=== PATIENT | female | born 1980 ===

== ENCOUNTER 2021-02-03 00:57 | Emergency (ER) | payer SELFPAY ==
--- OUTSIDE RECORDS SUMMARY | 2021-02-03 01:00 | XMS REPORT | Continuity of Care Document ---
:1980 Author Organization [facility] t Address [address] [place] [address] Care Team Providers Name Role Phone Visit, Evaristo Nurse Attending Clinician Unavailable Josiah Ramirez Attending Clinician Problems This patient has no known problems. Allergies, Adverse Reactions, Alerts This patient has no known allergies or adverse reactions. Medications This patient has no known medications. Procedures This patient has no known procedures. Encounters Start End Encounter Admission Attending Care Care Encounter Source Date/Time Date/Time Type Type Clinicians Facility Department ID 2021-01-24 2021-01-24 Nurse Visit, [facility] [id number] 14:55:14 15:19:57 Visit Evaristo ASSISTANT CURATOR [id number] Nurse [facility] [id number] MATERNAL [id number] & CHILD 107 [facility] 2020-10-03 2020-10-03 Nurse Visit, [facility] [id number] 08:21:22 08:31:[facility] [id number] [facility] [id number] MATERNAL [id number] & CHILD 107 [facility] 2020-08-15 2020-08-15 [facility] [id number] 06:25:52 23:59:00 Encounter Farzana Rahman SPECIALTY [id number] CARE [id number] CENTER AT [id number] [address] 2020-07-03 2020-07-03 Office [facility] [id number] 09:49:29 10:47:14 Visit Farzana Rahman ASSISTANT CURATOR [id number] [facility] [id number] MATERNAL [id number] & CHILD [address] [place] [address] - [place] Results This patient has no known results.
[2021-02-03 02:12] LABS: Urine Blood TRACE (NEG); Urine Glucose NEGATIVE (NEG); Urine Protein NEGATIVE (NEG); Urine Specific Gravity >1.030 (1.005-1.030); Urine pH 6.5 (5.0-7.0)
[2021-02-03] MEDS ORDERED: KETOROLAC 30 MG/ML INJ ONE (02:27)
[2021-02-03] MEDS ORDERED: ACETAMINOPHEN 500 MG TAB ONE (02:27)
[2021-02-03] MEDS ORDERED: ONDANSETRON 4 MG/2 ML VIAL ONE (04:00)
[2021-02-03] MEDS ORDERED: NA CHLORIDE 0.9% 1,000 ML ONE (04:00)
[2021-02-03] MEDS ORDERED: MORPHINE 4 MG/ML SYR ONE (04:00)
[2021-02-03 04:14] LABS: Absolute Lymphocytes (CBC) 1.7 K/uL (0.7-4.9); Basophils % 0.6 % (0-1.3); Lymphocytes % 20.4 % (15.3-44.8); MPV 8.8 fL (7.6-11.3); RBC Red Blood Cell Count 4.55 M/uL (3.86-4.86)
[2021-02-03 04:26] LABS: ALT/SGPT 22 U/L (12-78); AST/SGOT 19 U/L (15-37); Albumin 3.6 g/dL (3.4-5.0); Alkaline Phosphatase 66 U/L (45-117); BUN Blood Urea Nitrogen 11 mg/dL (7-18); Bicarbonate 23 mmol/L (21-32); Bilirubin Direct < 0.1 mg/dL (0-0.2); Bilirubin Total 0.2 mg/dL (0.2-1.0); Glucose Level 102 mg/dL (74-106); Potassium 4.1 mmol/L (3.5-5.1); Protein, Total 7.5 g/dL (6.4-8.2); Sodium Level 142 mmol/L (136-145)
--- NOTE | 2021-02-03 06:37 | ER ---
Nurse's Notes [facility] Name: Georgie Ashraf Age: 41 yrs Sex: Female : 1980 Arrival Date: 02/03/2021 Time: 01:05 Bed 16 Private MD: Diagnosis: Lower Back Pain Presentation: 02/03 01:13 Ebola Screen: Patient negative for fever greater than or equal to 101.5 degrees sg Fahrenheit, and additional compatible Ebola Virus Disease symptoms Patient denies exposure to infectious person. Patient denies travel to an Ebola-affected area in the 21 days before illness onset. No symptoms or risks identified at this time. Onset of symptoms was February 03, 2021. Care prior to arrival: None. Transition of care: patient was not received from another setting of care. 01:13 Acuity: AUDREY 4 sg 01:13 Method Of Arrival: Ambulatory 01:36 Chief complaint: Patient states: Reports around 4:30 PM she was lifting her grandbaby ea to put him in the car seat and felt a sharp pain in her lower back. Coronavirus screen: At this time, the client does not indicate any symptoms associated with coronavirus-19. Initial Sepsis Screen: Does the patient meet any 2 criteria? No. Patient's initial sepsis screen is negative. Does the patient have a suspected source of infection? No. Patient's initial sepsis screen is negative. Risk Assessment: Do you want to hurt yourself or someone else? Patient reports no desire to harm self or others. Historical: - Allergies: 01:41 No Known Allergies; ea - Home Meds: 01:41 None [Active]; ea - PMHx: 01:41 None; ea - PSHx: 01:41 None; ea - Immunization history:: Adult Immunizations up to date. - Social history:: Smoking status: Patient denies any tobacco usage or history of. Screenin:35 Abuse screen: Denies threats or abuse. Nutritional screening: No deficits noted. ea Tuberculosis screening: No symptoms or risk factors identified. Fall Risk None identified. Assessment: 01:42 Pain: Complains of pain in low back area. Pain: Pain does not radiate. Pain currently ea is 10 out of 10 on a pain scale. Neuro: Level of Consciousness is awake, alert, obeys commands, Oriented to person, place, time. Respiratory: Airway is patent Respiratory effort is even, unlabored, Respiratory pattern is regular, symmetrical. Derm: Skin is pink, warm \T\ dry. Musculoskeletal: Circulation, motion, and sensation intact. 02:30 Reassessment: Patient and/or family updated on plan of care and expected duration. Pain ea level reassessed. Patient is alert, oriented x 3, equal unlabored respirations, skin warm/dry/pink. Reports pain is the same. 04:10 Reassessment: Patient and/or family updated on plan of care and expected duration. Pain ea level reassessed. Patient is alert, oriented x 3, equal unlabored respirations, skin warm/dry/pink. Returned from CT. Vital Signs: 01:36 BP 117 / 90; Pulse 98; Resp 19; Temp 97.8; Pulse Ox 98% ; Weight 86.18 kg; Height 5 ft. ea 7 in. (170.18 cm); Pain 10/10; 03:51 BP 97 / 75; Pulse 71; Resp 16; Pulse Ox 98% on R/A; rv 01:36 Body Mass Index 29.76 (86.18 kg, 170.18 cm) ea ED Course: 01:05 Patient arrived in ED. am4 01:14 Triage completed. sg 01:14 Arm band placed on. sg 01:22 Michael Kolb, RN is Primary Nurse. rv 01:29 Eliezer Foster MD is Attending Physician. [facility] 01:32 Jelly Cook, LAMONT is Primary Nurse. ea 01:35 Patient has correct armband on for positive identification. Bed in low position. Call ea light in reach. Pulse ox on. NIBP on. 03:44 Inserted saline lock: 20 gauge in left antecubital area, using aseptic technique. Blood ds4 collected. 04:21 CT Stone Protocol In Process Unspecified. EDMS Administered Medications: 02:14 Drug: TORadol 60 mg Route: IM; Site: right gluteus; ea 04:27 Follow up: Response: No adverse reaction ea 02:14 Drug: Tylenol 1000 mg Route: PO; ea 04:27 Follow up: Response: No adverse reaction ea 03:49 Drug: NS 0.9% 1000 ml Route: IV; Rate: 1000 ml; Site: left antecubital; rv 03:50 Drug: morphine 4 mg {Note: rass 0.} Route: IVP; Site: left antecubital; rv 04:27 Follow up: Response: No adverse reaction; RASS: Alert and Calm (0) guadalupe 03:50 Drug: Zofran (Ondansetron) 4 mg Route: IVP; Site: left antecubital; rv 04:27 Follow up: Response: No adverse reaction guadalupe Outcome: 06:36 Discharge ordered by MD. meyer 07:40 Patient left the ED. ll2 Signatures: Dispatcher [employer] EDMS Ronaldo Chase, RN Compa Yu 4 Jelly Cook RN Michael Lozano ea RN Charlee Campos RN RN 2 Eliezer Foster MD MD [facility] Susan Barrios 4
--- NOTE | 2021-02-03 06:37 | EDPHYS ---
Physician Documentation [facility] Name: Georgie Ashraf Age: 41 yrs Sex: Female : 1980 Arrival Date: 02/03/2021 Time: 01:05 Bed 16 Private MD: ED Physician Eliezer Foster HPI: 02/03 03:06 This 41 yrs old Female presents to ER via Ambulatory with complaints of Back Pain. mh7 03:06 The patient presents with pain that is acute, with no known mechanism of injury. The mh7 symptoms are located in the low back. Onset: The symptoms/episode began/occurred yesterday. The pain does not radiate. Associated signs and symptoms: Pertinent negatives: abdominal pain, chest pain, constipation, dysuria, fever, headache, hematuria, incontinence, nausea, numbness, tingling, urinary retention, vomiting, weakness. The problem was sustained when bending over, when lifting baby. Modifying factors: The patient symptoms are alleviated by nothing, the patient symptoms are aggravated by movement. Severity of symptoms: At their worst the symptoms were moderate, yesterday, in the emergency department the symptoms are unchanged. The patient has experienced similar episodes in the past, multiple times. Historical: - Allergies: 01:41 No Known Allergies; ea - Home Meds: 01:41 None [Active]; ea - PMHx: 01:41 None; ea - PSHx: 01:41 None; ea - Immunization history:: Adult Immunizations up to date. - Social history:: Smoking status: Patient denies any tobacco usage or history of. ROS: 03:06 Constitutional: Negative for fever, chills, and weight loss, Eyes: Negative for injury, mh7 pain, redness, and discharge, ENT: Negative for injury, pain, and discharge, Neck: Negative for injury, pain, and swelling, Cardiovascular: Negative for chest pain, palpitations, and edema, Respiratory: Negative for shortness of breath, cough, wheezing, and pleuritic chest pain, Abdomen/GI: Negative for abdominal pain, nausea, vomiting, diarrhea, and constipation, : Negative for injury, bleeding, discharge, and swelling, MS/Extremity: Negative for injury and deformity, Skin: Negative for injury, rash, and discoloration, Neuro: Negative for headache, weakness, numbness, tingling, and seizure, Psych: Negative for depression, anxiety, suicide ideation, homicidal ideation, and hallucinations, Allergy/Immunology: Negative for hives, rash, and allergies, Endocrine: Negative for neck swelling, polydipsia, polyuria, polyphagia, and marked weight changes, Hematologic/Lymphatic: Negative for swollen nodes, abnormal bleeding, and unusual bruising. Exam: 03:06 Head/Face: Normocephalic, atraumatic. Eyes: Pupils equal round and reactive to light, mh7 extra-ocular motions intact. Lids and lashes normal. Conjunctiva and sclera are non-icteric and not injected. Cornea within normal limits. Periorbital areas with no swelling, redness, or edema. Neck: Trachea midline, no thyromegaly or masses palpated, and no cervical lymphadenopathy. Supple, full range of motion without nuchal rigidity, or vertebral point tenderness. No Meningismus. Chest/axilla: Normal chest wall appearance and motion. Nontender with no deformity. No lesions are appreciated. Cardiovascular: Regular rate and rhythm with a normal S1 and S2. No gallops, murmurs, or rubs. Normal PMI, no JVD. No pulse deficits. Respiratory: Lungs have equal breath sounds bilaterally, clear to auscultation and percussion. No rales, rhonchi or wheezes noted. No increased work of breathing, no retractions or nasal flaring. Abdomen/GI: Soft, non-tender, with normal bowel sounds. No distension or tympany. No guarding or rebound. No evidence of tenderness throughout. 03:06 Skin: Warm, dry with normal turgor. Normal color with no rashes, no lesions, and no evidence of cellulitis. MS/ Extremity: Pulses equal, no cyanosis. Neurovascular intact. Full, normal range of motion. Neuro: Awake and alert, GCS 15, oriented to person, place, time, and situation. Cranial nerves II-XII grossly intact. Motor strength 5/5 in all extremities. Sensory grossly intact. Cerebellar exam normal. Normal gait. Psych: Awake, alert, with orientation to person, place and time. Behavior, mood, and affect are within normal limits. 03:06 Constitutional: The patient appears alert, awake, comfortable, uncomfortable. 03:06 Back: pain, that is mild, of the lumbar area, ROM is painful, with all movement, normal spinal alignment noted, CVA tenderness, is absent, vertebral tenderness, is not appreciated, muscle spasm, is appreciated in the lumbar area, Straight leg raises: of both lower extremities does not illicit pain. Vital Signs: 01:36 BP 117 / 90; Pulse 98; Resp 19; Temp 97.8; Pulse Ox 98% ; Weight 86.18 kg; Height 5 ft. ea 7 in. (170.18 cm); Pain 10/10; 03:51 BP 97 / 75; Pulse 71; Resp 16; Pulse Ox 98% on R/A; rv 01:36 Body Mass Index 29.76 (86.18 kg, 170.18 cm) ea MDM: 06:34 Differential diagnosis: chronic back pain, Pyelonephritis sprain, Ureterolithiasis. [facility] Data reviewed: vital signs, nurses notes, lab test result(s), CBC, electrolytes, urinalysis, radiologic studies, CT scan. Data interpreted: Pulse oximetry: on room air is 98 %. Interpretation: normal. Counseling: I had a detailed discussion with the patient and/or guardian regarding: the historical points, exam findings, and any diagnostic results supporting the discharge/admit diagnosis, lab results, radiology results, the need for outpatient follow up, to return to the emergency department if symptoms worsen or persist or if there are any questions or concerns that arise at home. Response to treatment: the patient's symptoms have markedly improved after treatment. 06:36 Patient medically screened. 02/03 02:10 Order name: Urine --Ancillary (enter results); Complete Time: 03:31 02/03 02:10 Order name: Urine Dipstick--Ancillary (enter results); Complete Time: 03:31 3 02/03 03:33 Order name: CBC with Diff; Complete Time: 04:27 [facility] 02/03 03:33 Order name: Basic Metabolic Panel; Complete Time: 04:27 02/03 03:33 Order name: LFT's; Complete Time: 04:27 02/03 03:33 Order name: CT Stone Protocol [facility] 02/03 02:05 Order name: Urine Dipstick-Ancillary (obtain specimen); Complete Time: 02:08 [facility] 02/03 02:05 Order name: Urine Test (obtain specimen); Complete Time: 02:08 [facility] 02/03 03:33 Order name: Saline Lock; Complete Time: 03:47 mh7 Administered Medications: 02:14 Drug: TORadol 60 mg Route: IM; Site: right gluteus; ea 04:27 Follow up: Response: No adverse reaction ea 02:14 Drug: Tylenol 1000 mg Route: PO; ea 04:27 Follow up: Response: No adverse reaction ea 03:49 Drug: NS 0.9% 1000 ml Route: IV; Rate: 1000 ml; Site: left antecubital; rv 03:50 Drug: morphine 4 mg {Note: rass 0.} Route: IVP; Site: left antecubital; rv 04:27 Follow up: Response: No adverse reaction; RASS: Alert and Calm (0) ea 03:50 Drug: Zofran (Ondansetron) 4 mg Route: IVP; Site: left antecubital; rv 04:27 Follow up: Response: No adverse reaction ea Disposition: 02/03/21 06:36 Discharged to Home. Impression: Lower Back Pain. - Condition is Stable. - Discharge Instructions: Back Pain, Adult, [id number]. - Prescriptions for Ibuprofen 800 mg Oral Tablet - take 1 tablet by ORAL route every 8 hours As needed take with food; 15 tablet. Robaxin 500 mg Oral Tablet - take 2 tablet by ORAL route every 6 hours As needed; 40 tablet. - Medication Reconciliation Form, Thank You Letter, Antibiotic Education, Prescription Opioid Use form. - Follow up: Private Physician; When: 1 - 2 days; Reason: Worsening of condition, Recheck today's complaints, Continuance of care, Re-evaluation by your physician. - Problem is an acute exacerbation. - Symptoms have improved. Signatures: Dispatcher [employer] EDNV Jelly Cook RN RN Michael Kramer RN RN Charlee Lam RN RN 2 Eliezer Foster MD MD 7 Corrections: (The following items were deleted from the chart) 07:40 06:36 02/03/2021 06:36 Discharged to Home. Impression: Lower Back Pain. Condition is ll2 Stable. Forms are Medication Reconciliation Form, Thank You Letter, Antibiotic Education, Prescription Opioid Use. Follow up: Private Physician; When: 1 - 2 days; Reason: Worsening of condition, Recheck today's complaints, Continuance of care, Re-evaluation by your physician. Problem is an acute exacerbation. Symptoms have improved. mh7
[2021-02-03 07:47] VITALS: TEMP 97.8; O2SAT 98
[2021-02-03 07:48] VITALS: BP 97/75
--- NOTE | 2021-02-04 07:45 | RAD REPORT ---
EXAM DESCRIPTION: CT ABDOMEN AND PELVIS WITHOUT CONTRAST CLINICAL HISTORY: FLANK PAIN COMPARISON: None Available. TECHNIQUE: CT of the abdomen and pelvis without IV contrast. Evaluation of the solid organs and vasc ulature is suboptimal due to lack of IV contrast. This exam was performed according to our department al dose-optimization program, which includes automated exposure control, adjustment of the mA and/or kV according to patient size and/or use of iterative reconstruction technique. FINDINGS: Lung Bases: The visualized lung bases are clear. Bones: No destructive bone lesions identified. Abdomen: Liver: The liver has normal size and density. Gallbladder: No calcified gallstones. Spleen, Pancreas, and Adrenal Glands: The spleen, pancreas, and adrenal glands are unremarkable. Kidneys: The kidneys have normal size without evidence of hydronephrosis. No obstructing ureteral bella culi. Vasculature: The aorta and IVC have normal caliber and position. Stomach: The stomach and duodenum have normal course. Other: No free intraperitoneal air. No free fluid or lymphadenopathy. Pelvis: Bladder: Urinary bladder is unremarkable. Bowel: No dilated loops of large or small bowel. Moderate amount of stool. Appendix: Normal appendix. Pelvis: Uterus is not enlarged. IMPRESSION: 1. No acute inflammatory or obstructive process identified. Electronically signed by: Denis Bliss 02/03/2021 4:54 AM [employer] Due to temporary technical issues with the PACS/Fluency reporting system, reports are being signed by the in house radiologists without review as a courtesy to insure prompt reporting. The interpreting radiologist is fully responsible for the content of the report.
== END 2021-02-03 07:40 | disposition home or self-care (01) ==
LOC: ER 00:57
DX: M54.5 Low back pain (principal)
CPT/HCPCS: 36415; 74176; 76377; 80048; 80076; 81003; 81025; 85025; 96372; 96374; 96375; 99284; J2405; J7030